=== PATIENT | male | born 1980 ===

== ENCOUNTER 2018-03-15 22:19 | Emergency (ER) | payer MEDICAID ==
[2018-03-15 22:52] VITALS: BP 134/91; PULSE 93; RESP 16; TEMP 98; O2SAT 98
--- NOTE | 2018-03-16 00:24 | C.PDOC ---
History Of Present Illness 37 year old male presents as a prescreened for detox from heroin and xanax. Denies other complaints. Time Seen by Provider: 03/15/18 22:59 Chief Complaint (Nursing): Substance Abuse History Per: Patient History/Exam Limitations: no limitations Onset/Duration Of Symptoms: Hrs Current Symptoms Are (Timing): Still Present Suicide/Self Injury Attempted (Context): None Modifying Factor(s): Other (Heroin, Xanax) Involuntary Hold By: None Recent travel outside of the [place]: No Past Medical History Reviewed: Historical Data, Nursing Documentation, Vital Signs Vital Signs: Last Vital Signs Temp 98.0 F 03/15/18 22:47 Pulse 93 H 03/15/18 22:47 Resp 16 03/15/18 22:47 BP 134/91 H 03/15/18 22:47 Pulse Ox 98 03/16/18 00:31 Family History: States: Unknown Family Hx - Social History Hx Alcohol Use: No Hx Substance Use: Yes - Immunization History Hx Tetanus Toxoid Vaccination: No Hx Influenza Vaccination: No Hx Pneumococcal Vaccination: No Review Of Systems Constitutional: Negative for: Fever, Chills Cardiovascular: Negative for: Chest Pain, Palpitations Respiratory: Negative for: Cough, Shortness of Breath Gastrointestinal: Negative for: Nausea, Vomiting Physical Exam - Physical Exam Appears: Non-toxic, No Acute Distress Skin: Normal Color, Warm, Dry Head: Atraumatic, Normacephalic Oral Mucosa: Moist Chest: Symmetrical, No Tenderness Cardiovascular: Rhythm Regular Respiratory: Normal Breath Sounds, No Rales, No Rhonchi, No Wheezing Neurological/Psych: Oriented x3, Normal Speech Gait: Steady ED Course And Treatment O2 Sat by Pulse Oximetry: 98 (Room air) Pulse Ox Interpretation: Normal Progress Note: Patient states he recently used and prefers to come tomorrow instead. Patient eloped. 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 - Scribe Statement The provider has reviewed the documentation as recorded by the Scribe Santos Ugalde All medical record entries made by the Scribe were at my direction and personally dictated by me. I have reviewed the chart and agree that the record accurately reflects my personal performance of the history, physical exam, medical decision making, and the department course for this patient. I have also personally directed, reviewed, and agree with the discharge instructions and disposition.
== END 2018-03-16 05:04 | disposition home or self-care (01) ==
LOC: C.ER 22:19
DX: F19.10 Other psychoactive substance abuse, uncomplicated (principal)

== ENCOUNTER 2018-03-17 00:23 | Inpatient (IN) | payer MEDICAID ==
[2018-03-17 01:06] LABS: BASO # 0.1 K/uL (0.0-0.2); BASO % 0.8 % (0.0-2.0); EOS # 0.2 K/uL (0.0-0.7); EOS % 2.7 % (0.0-4.0); HEMOGLOBIN 14.9 g/dL (12.0-18.0); LYMPH # 2.9 K/uL (1.0-4.3); LYMPH % 33.3 % (20.0-40.0); MEAN CELL VOLUME 85.7 fL (80.0-94.0); MEAN CORPUSCULAR HEMOGLOBIN 30.4 pg (27.0-31.0); MEAN CORPUSCULAR HGB CONC 35.4 g/dL (33.0-37.0); MEAN PLATELET VOLUME 8.6 fL (7.2-11.7); MONO # 0.6 K/uL (0.0-0.8); MONO % 7.1 % (0.0-10.0); NEUT # 4.9 K/uL (1.8-7.0); NEUT % 56.1 % (50.0-75.0); NRBC % 0.1 % (0.0-2.0); RBC 4.89 Mil/uL (4.40-5.90); RED CELL DISTRIBUTION WIDTH 12.8 % (11.5-14.5); WHITE BLOOD COUNT 8.8 K/uL (4.8-10.8)
--- NOTE | 2018-03-17 01:09 | C.PDOC ---
History Of Present Illness 37 year old male presents to the ED requesting detoxification from heroin and xanax. Patient states the last use of these substances was earlier today. He denies any SI/HI, hallucinations, or any physical complaints. Time Seen by Provider: 03/17/18 01:08 Chief Complaint (Nursing): Substance Abuse History Per: Patient History/Exam Limitations: no limitations Onset/Duration Of Symptoms: Hrs Current Symptoms Are (Timing): Still Present Suicide/Self Injury Attempted (Context): None Modifying Factor(s): Other (Heroin and Xanax ) Severity: Moderate Pain Scale Rating Of: 4 Associated Symptoms: denies: Suicidal Thoughts, Suicidal Plan Involuntary Hold By: None Recent travel outside of the [place]: No Additional History Per: Family Past Medical History Reviewed: Historical Data, Nursing Documentation, Vital Signs Vital Signs: Last Vital Signs Temp 97.5 F L 03/17/18 00:33 Pulse 93 H 03/17/18 00:33 Resp 20 03/17/18 00:33 BP 113/72 03/17/18 00:33 Pulse Ox 97 03/17/18 01:15 - Medical History PMH: Diabetes Surgical History: No Surg Hx Family History: States: No Known Family Hx - Social History Hx Alcohol Use: No Hx Substance Use: Yes - Immunization History Hx Tetanus Toxoid Vaccination: No Hx Influenza Vaccination: No Hx Pneumococcal Vaccination: No Review Of Systems Constitutional: Negative for: Fever, Chills Cardiovascular: Negative for: Chest Pain Respiratory: Negative for: Shortness of Breath Gastrointestinal: Negative for: Abdominal Pain Musculoskeletal: Negative for: Back Pain Skin: Negative for: Rash Neurological: Negative for: Weakness Psych: Negative for: Depression, Suicidal ideation Physical Exam - Physical Exam Appears: Non-toxic Skin: Warm, Dry Head: Normacephalic Eye(s): bilateral: Normal Inspection Nose: Normal Oral Mucosa: Moist Neck: Supple Chest: Symmetrical Cardiovascular: Rhythm Regular Respiratory: No Rales, No Rhonchi, No Wheezing Gastrointestinal/Abdominal: Soft, No Tenderness Extremity: Normal ROM Extremity: Bilateral: Atraumatic Neurological/Psych: Oriented x3, Normal Speech Gait: Steady ED Course And Treatment - Laboratory Results Result Diagrams: 03/17/18 01:03 03/17/18 01:03 O2 Sat by Pulse Oximetry: 97 (RA) Pulse Ox Interpretation: Normal Medical Decision Making Medical Decision Making: Orders: -Labwork -UA -Crisis evaluation Disposition Discussed With : James Callahan Comment: accepted the pt on his service and took over the care at 2:37 AM Doctor Will See Patient In The: Hospital Counseled Patient/Family Regarding: Studies Performed, Diagnosis - Disposition Disposition: HOSPITALIZED Disposition Time: 01:08 Condition: FAIR Forms: [facility] ([place]serratian) - Clinical Impression Clinical Impression: Drug abuse, Drug dependence - Scribe Statement The provider has reviewed the documentation as recorded by the Scribe Johnna Arevalo All medical record entries made by the Scribe were at my direction and personally dictated by me. I have reviewed the chart and agree that the record accurately reflects my personal performance of the history, physical exam, medical decision making, and the department course for this patient. I have also personally directed, reviewed, and agree with the discharge instructions and disposition. Decision To Admit - Pt Status Changed To: Hospital Disposition Of: Inpatient - Admit Certification Admit to Inpatient:: After my assessment, the patient will require hospitalization for at least two midnights. This is because of the severity of symptoms shown, intensity of services needed, and/or the medical risk in this patient being treated as an outpatient. - InPatient: Physician Admission Certification: I certify that this patient requires 2 or more midnights of care for the following reason:: After my assessment, the patient will require hospitalization for at least two midnights. This is because of the severity of symptoms shown, intensity of services needed, and/or the medical risk in this patient being treated as an outpatient. - . Bed Request Type: Detox Admitting Physician: James Callahan Patient Diagnosis: Drug abuse, Drug dependence
[2018-03-17 01:35] LABS: BARBITURATES, UR NEGATIVE (NEGATIVE); PHENCYCLIDINE, UR NEGATIVE (NEGATIVE)
[2018-03-17 01:49] LABS: ALB/GLOB RATIO 1.4 (1.0-2.1); ALBUMIN 4.5 g/dL (3.5-5.0); ALT/SGPT 19 U/L (21-72); AST/SGOT 15 U/L (17-59); BLOOD UREA NITROGEN 16 mg/dL (9-20); CALCIUM 9.5 mg/dl (8.6-10.4); GFR NON-AFRICAN AMERICAN > 60
[2018-03-17 01:53] LABS: URINE BILIRUBIN NEGATIVE (NEGATIVE); URINE BLOOD NEGATIVE (NEGATIVE); URINE CLARITY Clear (Clear); URINE COLOR Yellow (YELLOW); URINE GLUCOSE (UA) NORMAL (Normal); URINE LEUKOCYTE ESTERASE NEG Leu/uL (Negative); URINE PROTEIN NEGATIVE (NEGATIVE)
[2018-03-17 02:00] LABS: BENZODIAZEPINES, UR POSITIVE (NEGATIVE); OPIATES, UR POSITIVE (NEGATIVE)
--- NOTE | 2018-03-17 03:22 | PCM.BM ---
<Veronika Uriostegui - Last Filed: 03/17/18 03:21> Treatment Plan Problems - Problems identified on initial assessmt Ineffective Coping Skills Date Initiated: 03/17/18 Time Initiated: 03:21 Assessment reference: NA Status: Active Treatment assets and liabiliti Patient Assests: ADL independent Patient Liabilities: substance abuse - Milieu Protocol Maintain good personal hygiene: daily Encourage regular showers, daily Remind patient to perform daily oral care, daily Assist patient to perform ADL's Maintain personal safety: every shift Educate patient to report safety concerns to staff, every shift Monitor environment for contraband/sharps Medication safety: Monitor for expected outcome, potential side effects: every shift, Assess barriers to learning: every shift, Assess readiness for medication education: every shift <Char Joy - Last Filed: 03/18/18 14:00> Family Contact Family involvement: Family/SO is involved Family contact name: mother, girlfriend Family contacted how many times per week?: 4 - Goals for Treatment Patient goals for treatment: Complete detox and apply for inpatient rehab program. Discharge/Continuing Care - Education Needs Education Needs: Patient Diagnosis/Disease Process (Spouse being placed inpatient by [facility] for opiates), Patient Coping Skills, Patient Anger Management skills, Patient Placement options, Patient Community resources, Significant Other Diagnosis/Disease Process - Discharge Discharge Criteria: Free of agitation, Normal sleep pattern, No longer exhibiting s/s of withdrawal, Reduction of target symptoms Discharge to:: Substance Abuse Rehab - Treatment Team Participation Patient/Family/SO Statement: 03/18/18 13:59 "I can stay with 1 of my sisters but I think I need inpatient..." Discussed with Family/SO: No Was Patient/Family/SO present at Treatment Team Meeting: Yes
--- NOTE | 2018-03-17 09:29 | PCM.PSYCH ---
Initial Psychiatric Evaluation - Initial Psychiatric Evaluation Type of Admission: Voluntary Legal Status: Capacity History of Present Illness and Precipitating Events: This is a 37 years old HM, currently lives with mother, unemployed, with history of opiate, cocaine and sedative /hypnotic use disorder came to the ED to get hep in opioid detox. Patient reports history of abusing heroin, cocaine and benzos. As per the patient he has been sniffing 40-50 bags of heroin daily, along with cocaine and 4-5 xanax bars. As per the patient he sniffed almost 15 bags of heroin yesterday, became increasingly anxious and developed withdrawal symptoms, so he came to the ED to get help. Patient reports anxiety but denies any feelings of hopelessness and helplessness. He denies any change in sleep or appetite. He denies any manic or psychotic symptoms. Patient reports of withdrawal symptoms including abdominal cramps, anxiety, nausea, shakes, headaches and sweating. Past medical history DM Current Medications: Active Medications Generic Name Dose Route Start Last Admin Trade Name Freq PRN Reason Stop Dose Admin Pneumococcal Polyvalent Vaccine 0.5 ml 03/20/18 10:00 Pneumovax 23 Vaccine IM 03/20/18 10:01 .ONCE ONE Past Psychiatric History - Past Psychiatric History Previous Treatment History: Inpatient Pertinent Medical Hx (Current Medical&Sleep Prob, Allergies): Allergies Allergy/AdvReac Type Severity Reaction Status Date / Time No Known Allergies Allergy Verified 03/17/18 00:35 GlipiZIDE [Glipizide] 10 mg PO DAILY 03/15/18 MetFORMIN [glucOPHAGE] 1,000 mg PO BID 03/15/18 Review of Systems - Review of Systems All systems: reviewed and no additional remarkable complaints except - Psychiatric Psychiatric: Anxiety, Irritability. absent: Suicidal Ideation Mental Status Examination - Personal Presentation Personal Presentation: Looks stated age - Affect Affect: Constricted - Motor Activity Motor Activity: Calm - Reliability in Providing Information Reliability in Providing Information: Fair - Speech Speech: Organized - Mood Mood: Anxious - Formal Thought Process Formal Thought Process: No Impairment - Obsessions/Compulsions Obsessions: No Compulsions: No - Cognitive Functions Orientation: Person, Place, Situation, Time Sensorium: Alert Attention/Concentration: Attentive Abstract Thinking: [place] Estimate of Intelligence: Below average Judgement: Imparied, as evidence by: Poor judgement, Intact, as evidence by: Good judgement - Risk Risk: Withdrawal, Diminished functioning - Limitations Limitations: Living alone DSM 5 DX - DSM 5 DSM 5 Diagnosis: Sedative/hypnotic use disorder severe Sedative/hypnotic withdrawal Opiate use disorder severe Opiate withdrawal uncomplicated Cocaine use disorder severe - Recommended/Plan of Treatment Treatment Recommendations and Plan of Treatment: Sedative/hypnotic use disorder severe Sedative/hypnotic withdrawal CBT Psychoeducation Supportive therapy, individual therapy Start librium taper MVI/Thiamine/Folic Acid Opiate use disorder severe Opiate withdrawal uncomplicated CBT Psychoeducation Supportive therapy, individual therapy Methadone taper Gabapentin for augmentation Trazodone for insomnia Hydroxyzine for anxiety Cocaine use disorder severe CBT Psychoeducation Supportive therapy, individual therapy Use [place] for abstinence - Smoking Cessation Smoking Cessation Initiated: No
[2018-03-17] MEDS ORDERED: Benzocaine/Menthol (Cepacol) Lozenge PO PRN (10:43)
[2018-03-17] MEDS: Aluminum Hydroxide/Magnesium Hydroxide Susp (30 mL) PO PRN (19:43)
[2018-03-18] MEDS: Aluminum Hydroxide/Magnesium Hydroxide Susp (30 mL) PO PRN ×2 (13:43→18:00)
--- NOTE | 2018-03-18 16:37 | PCM.PYCHPN ---
Psychiatric Progress Note - Psychiatric Progress Note Patient seen today, length of contact: 16mins Patient Chief Complaint: "I dont want to keep taking medication" Problems Identified/Issues Discussed: The pt is seen, chart reviewed, case discussed with staff. The pt is compliant with medications and reports no side-effects. No new symptoms reported. Pt improving slowly, agitated and anxious during interview. Pt attends groups and activities. Support given, psycho-education provided. After care discussed. Medication Change: Yes (detox changes daily) Medical Record Reviewed: Yes Mental Status Examination - Cognitive Function Orientation: Person, Place, Situation, Time - Mood Mood: Anxious - Affect Affect: Constricted - Speech Speech: Appropriate - Formal Thought Process Formal Thought Process: No Impairment - Suicidal Ideation Suicidal Ideation: No - Homicidal Ideation Homicidal Ideation: No Goal/Treatment Plan - Goal/Treatment Plan Need for Continued Stay: Discharge may exacerbated symptoms, Severe functional impairment Progress Toward Problem(s) and Goals/Treatment Plan: Sedative/hypnotic use disorder severe Sedative/hypnotic withdrawal CBT Psychoeducation Supportive therapy, individual therapy Start librium taper MVI/Thiamine/Folic Acid Opiate use disorder severe Opiate withdrawal uncomplicated CBT Psychoeducation Supportive therapy, individual therapy Methadone taper Gabapentin for augmentation Trazodone for insomnia Hydroxyzine for anxiety Cocaine use disorder severe CBT Psychoeducation Supportive therapy, individual therapy Use [place] for abstinence
[2018-03-19] MEDS: Aluminum Hydroxide/Magnesium Hydroxide Susp (30 mL) PO PRN (17:23)
--- NOTE | 2018-03-19 17:58 | RAD ---
Date of service: 03/19/2018 HISTORY: aftercare placement COMPARISON: No prior. TECHNIQUE: Chest PA and lateral FINDINGS: LUNGS: No active pulmonary disease. PLEURA: No significant pleural effusion identified. No pneumothorax apparent. CARDIOVASCULAR: Normal. OSSEOUS STRUCTURES: No significant abnormalities. VISUALIZED UPPER ABDOMEN: Normal. OTHER FINDINGS: None. IMPRESSION: No acute cardiopulmonary disease appreciated.
[2018-03-20] MEDS ORDERED: Influenza Vaccine 60 mcg/0.5 mL SYR (4YR UP) IM ONE (10:00)
[2018-03-20] MEDS ORDERED: Pneumococcal 23-Valent Vaccine IM ONE (10:00)
[2018-03-20] MEDS: Aluminum Hydroxide/Magnesium Hydroxide Susp (30 mL) PO PRN (22:10)
[2018-03-21 06:13] VITALS: RESP 18; O2SAT 99
--- NOTE | 2018-03-21 07:03 | PCM.PYCHDC ---
Mental Status Examination - Mental Status Examination Orientation: Person Discharge Summary - Discharge Note Laboratory Data: Abnormal Lab Results 03/20/18 07:58 POC Glucose (mg/dL) 211 H Consultations:: List each consultation separately and include: 1. Reason for request. 2. Findings. 3. Follow-up Summary of Hospital Course include:: 1. Description of specific treatment plan utilized for patients during their course of treatmen. 2. Summarize the time- course for resolution of acute symptoms and/or regressed behaviors. 3. Describe issues identified and worked on during hospitalization. 4. Describe medication utilized. 5. Describe medical problems identified and treated. 6. Reassessment of suicide risk Summary of Hospital Course: He went to [facility]. He was unmotivated, "pocketed" pills one time, warned - denied, SC used to help him stay clean. - Final Diagnosis (DSM 5) Condition upon Discharge: FAIR Disposition: HOME/ ROUTINE Follow-up Treatment Plan: Sedative/hypnotic use disorder severe Sedative/hypnotic withdrawal CBT Psychoeducation Supportive therapy, individual therapy Start librium taper MVI/Thiamine/Folic Acid Opiate use disorder severe Opiate withdrawal uncomplicated CBT Psychoeducation Supportive therapy, individual therapy Methadone taper Gabapentin for augmentation Trazodone for insomnia Hydroxyzine for anxiety Cocaine use disorder severe CBT Psychoeducation Supportive therapy, individual therapy Use [place] for abstinence Prescriptions/Medication Reconciliation: Gabapentin [Neurontin] 300 mg PO TID #90 cap GlipiZIDE [Glucotrol] 10 mg PO DAILY #30 tab MetFORMIN [glucoPHAGE] 1,000 mg PO BID #60 tab QUEtiapine [Seroquel] 100 mg PO HS #30 tab traZODone [Desyrel] 100 mg PO HS PRN #30 tab PRN Reason: Insomnia
[2018-03-21 07:39] VITALS: BP 125/71; PULSE 100; TEMP 97.6
== END 2018-03-21 07:45 | disposition home or self-care (01) | DRG 745 ==
LOC: C.ER 00:23 → C.7D 02:36
PROVIDERS: ADMIT Psychiatry & Neurology Psychiatry; ATTEND Psychiatry & Neurology Psychiatry
PROC: GZHZZZZ Group Psychotherapy (ICD-10-PCS; principal; 2018-03-17)
PROC: GZ56ZZZ Individual Psychotherapy, Supportive (ICD-10-PCS; 2018-03-17)
DX: F11.23 Opioid dependence with withdrawal (principal); F41.9 Anxiety disorder, unspecified; G47.00 Insomnia, unspecified; E11.9 Type 2 diabetes mellitus without complications; F19.10 Other psychoactive substance abuse, uncomplicated; F14.10 Cocaine abuse, uncomplicated